=== PATIENT | female | born 1940 | race Caucasian/White ===

== ENCOUNTER 2024-03-25 05:39 | Emergency (ER) | payer MEDICARE, BC ==
[~2024-03-25] VITALS: Ht 149.9 cm; Wt 63.0 kg
[~2024-03-25 05:39] MED LIST: BABY ASPIRIN81 MG OR; CALCIUM600 M3 OR; PREVACID30 M1 OR; RHINOCORT; SYNTHROID50 MCG OR; SYNTHROID75 MCG OR
[2024-03-25 05:52] VITALS: BP 135/43
[2024-03-25] MEDS ORDERED: MECLIZINE HCL 25 MG/TAB PO ONE (05:55)
[2024-03-25] MEDS ORDERED: SODIUM CHLORIDE 0.9% 1,000 ML IV ONE (05:55)
[2024-03-25 06:00] VITALS: BP 140/43
[2024-03-25 06:03] LABS: BASO% 0.3 % (0-3); EOS% 2.2 % (0-8); HEMATOCRIT 32.8 % (37.0-47.0); HEMOGLOBIN 10.7 g/dl (12.0-16.0); IMMATURE GRANULOCYTES 0.2 % (0.0-5.0); LYMPH% 16.8 % (15-41); MEAN CELL VOLUME 94.5 fL CALC (80.0-100.0); MEAN CORPUSCULAR HGB 30.8 pG CALC (26.0-32.0); MEAN CORPUSCULAR HGB CONC 32.6 g/dL CAL (32.0-36.0); MONO% 6.1 % (2-13); NEUT# 6.74 thou/uL (2.00-7.15); NEUT% 74.4 % (42-76); RED BLOOD COUNT 3.47 mill/uL (4.20-5.60); RED CELL DISTRI WIDTH 12.6 % (11.5-15.5)
[2024-03-25 06:13] LABS: ALBUMIN 4.1 g/dL (3.2-5.0); BILIRUBIN, TOTAL 0.5 mg/dL (0.02-1.3); CREATININE 0.9 mg/dL (0.5-1.0); POTASSIUM 3.5 mmol/l (3.5-5.1); TOTAL PROTEIN 6.5 g/dL (6.3-8.2)
[2024-03-25 06:18] LABS: PROTHROMBIN TIME 10.3 SECONDS (9.0-12.5)
[2024-03-25] MEDS ORDERED: MECLIZINE 2525 MG PO (06:56)
[2024-03-25] MEDS ORDERED: ZOFRAN4 MG/TAB PO (06:56)
[2024-03-25 07:18] VITALS: BP 118/47
== END 2024-03-25 07:22 | disposition home or self-care (01) ==
LOC: ED 05:39
PROVIDERS: Family Medicine
DX: R42 Dizziness and giddiness (principal)